=== PATIENT | female | born 1980 | race Caucasian/White ===

== ENCOUNTER → 2017-02-26 | Outpatient (CLI) | payer MEDICAID ==
[~2017-02-26] MED LIST: CLONAZEPAM 1MG T1 MG PO; GABAPENTIN800 MG PO; HYDROCHLOROTH12.5 M1 PO; HYDROCODONE-APA1 TA2 PO; IMDUR30 MG PO; NICOTINE PATCH;14 MG TD; RANITIDINE300 MG PO; TRAMADOL50 M1 PO; VENTOLIN H0.09 MG/Ac IH
--- NOTE | 2017-02-27 18:30 | RADIOLOGY REPORT PS360 ---
ECHO ADULT PROCEDURE: INDICATIONS FOR THE TEST: Chest pain COPD Heart Murmur Tobacco Smoking+ Palpitations Fatigue Syncope Edema Hypertension+Diabetes Mellitus Rheumatic Fever SOB+BLEVINS Obesity Hyperlipidemia Family History HD Additional History PATIENT INFORMATION HEIGHT: 60 WEIGHT:260 GENDER: Female B/P:140/84 2-D/M-MODE INTERPRETATION: 2-D MEASUREMENTS OBSERVED VALUES IN CMS Right Ventricular Dimension (RVDd) 1.8 Interventricular Septum (Thickness)(IVsd) 1.1 Left Ventricular Internal Dimensions(LVIDd) 4.9 Left Ventricular Posterior Wall (Thickness)(LVPWd) 1.0 Aortic Root 2.8 Aortic Cusp Separation Left Atrial Dimensions (LAD) 4.4 2D 1. The left atrium is mildly enlarged, left ventricle is normal size, there is borderline concentric left ventricular hypertrophy, visually estimated ejection fraction of 55% with no obvious regional wall motion abnormality. 2. The right atrium and right ventricle are normal size and contractility. 3. The aortic valve is minimally thickened and calcified. 4. The tricuspid valve is structurally normal. 5. Mitral valve leaflets are minimally thickened, there is no mitral stenosis. 6. The pulmonic valve is not well visualized. 7. No significant pericardial effusion noted. DOPPLER INTERROGATION: Doppler interrogation of the aortic mitral and tricuspid valvular presence of mild mitral and tricuspid regurgitation, tricuspid regurgitant jet velocity insufficient for calculation of the right ventricular systolic pressure, grade 1 diastolic dysfunction seen without tissue Doppler evidence of raised left atrial pressure. CONCLUSION: 1. Mildly enlarged left atrium, normal left ventricular size, borderline concentric left ventricular hypertrophy, visually estimated ejection fraction of 55% with no obvious regional wall motion abnormality, grade 1 diastolic dysfunction seen without Doppler evidence of raised left atrial pressure. 2. Mild mitral and tricuspid regurgitation. 3. No significant pericardial effusion noted.
== END ==
LOC: RT 13:16
DX: I10 Essential (primary) hypertension (principal); G47.33 Obstructive sleep apnea (adult) (pediatric)